=== PATIENT | female | born 1985 | race Hispanic/Latino ===

== ENCOUNTER 2019-07-14 13:13 | Outpatient (CLI) | payer OTHER ==
--- NOTE | 2019-07-14 13:52 | ULT ---
EXAM: OB ultrasound COMPARISON: None HISTORY: female. Evaluate size, dates, and anatomy. TECHNIQUE: Multiplanar grayscale and color Doppler images were obtained in a transabdominal ult rasound. FINDINGS: There is a single live intrauterine with heart rate of 130 bpm. A survey wa s performed which is unremarkable. The head, intracranial structures, heart, stomach, kidneys, umbilical cord, umbilical cord insertion, spine, face, and extremities were evaluated and were unrema rkable. Estimated weight is 336 g. Average age of the fetus based off today's examination is 20 weeks 3 days. BPD 4.69 cm -- 20 weeks 2 days HC 18.21 cm -- 20 weeks 5 days AC 15.09 cm -- 20 weeks 3 days FL 3.17 cm -- 19 weeks 6 days The placenta is posterior in location without focal abnormality. KYLEIGH is 13.58 cm which is normal. The cervix is normal in length. There is no evidence of placenta previa. IMPRESSION: Single live intrauterine with estimated age of 20 weeks 3 days.
== END 2019-07-14 13:14 | disposition home or self-care (01) ==
LOC: BICULT 13:13
DX: O09.92 Supervision of high risk pregnancy, unspecified, second trimester (principal); Z3A.20 20 weeks gestation of pregnancy
CPT/HCPCS: 76805

== ENCOUNTER 2019-11-23 19:15 | Inpatient (IN) | payer MEDICAID, OTHER, SELFPAY ==
[2019-11-24] MEDS ORDERED: Carboprost 250 MCG/ML AMP IM PRN (06:13)
[2019-11-24] MEDS ORDERED: Methylergonovine 0.2 MG/ML VIAL IM PRN (06:13)
[2019-11-24] MEDS ORDERED: Ibuprofen 800 MG TAB PO PRN (06:13)
[2019-11-24] MEDS ORDERED: Butorphanol Tartrate 1 MG/ML VIAL SLOW IVP PRN (06:13)
[2019-11-24] MEDS ORDERED: NS / Oxytocin 40 units/1000ml 1,000 ML IV PRN (06:13)
[2019-11-24] MEDS ORDERED: Misoprostol 200 MCG TAB PR PRN (06:13)
[2019-11-24] MEDS ORDERED: HYDROcodone/Acetaminophen 5/325 mg Tablet PO PRN ×3 (06:13→13:52)
[2019-11-24] MEDS ORDERED: Lidocaine 1% (PF) 30 ML VIAL SC PRN (06:13)
[2019-11-24] MEDS ORDERED: Diphenoxylate HCl/Atropine Tablet PO PRN (06:13)
[2019-11-24] MEDS ORDERED: Promethazine HCl 25 MG/ML VIAL IM PRN ×3 (06:13→13:52)
[2019-11-24] MEDS ORDERED: Ondansetron PF 4 MG/2 ML Vial IVP PRN ×3 (06:13→13:52)
[2019-11-24] MEDS ORDERED: hydrALAZINE 20 MG/ML VIAL SLOW IVP PRN ×2 (06:13→13:52)
[2019-11-24] MEDS ORDERED: NS w/ Oxytocin 10 units 500 ML IV SCH ×2 (06:15)
[2019-11-24 06:18] VITALS: BMI 35.7
[2019-11-24] MEDS: Lactated Ringer's 1,000 ML IV SCH ×2 (06:20→08:49)
[2019-11-24 06:36] LABS: Hemoglobin 13.4 g/dL (12.0-16.0); Mean Corpuscular HGB CONC 34.4 g/dL (32.0-36.0); Mean Corpuscular Volume 87.4 fL (78.0-98.0); Mean Platelet Volume 8.1 fL (7.4-10.4); Platelet Count 315 thou/uL (130-400); RBC Distribution Width 12.2 % (11.5-14.5); Red Blood Cell (RBC) Count 4.46 mill/uL (4.20-5.40); White Blood Cell (WBC) Count 11.9 thou/uL (4.8-10.8)
[2019-11-24 07:12] LABS: Syphilis Antibody Nonreactive (Nonreactive); Syphilis Antibody Index 0.04 S/CO (<1.00 Non-Reactive)
[2019-11-24 07:13] LABS: HBSAg Index 0.13 S/CO (0-0.99); Hep B Surf Ag Non-Reactive S/CO (NonReactive)
[2019-11-24] MEDS ORDERED: Fentanyl 4 mcg/Bup 0.1% Cadd 100 ML ONE (07:40)
[2019-11-24] MEDS ORDERED: Famotidine/PF 20 mg/2ml Vial ONE (10:01)
[2019-11-24] MEDS ORDERED: Bupivacaine 0.25% HCL 30 ML VIAL ONE (10:13)
[2019-11-24] MEDS ORDERED: Naloxone HCl 0.4 mg/ml Vial IVP PRN ×2 (11:41)
[2019-11-24] MEDS ORDERED: Acetaminophen 325 MG TAB PO PRN (11:41)
[2019-11-24] MEDS ORDERED: diphenhydrAMINE 50 MG/ML VIAL IVP PRN (11:41)
[2019-11-24] MEDS ORDERED: ePHEDrine/0.9% NaCl/PF SYRINGE 50 mg/10 ml SLOW IVP PRN (11:41)
[2019-11-24] MEDS ORDERED: Lactated Ringer's 500 ML IV PRN (11:41)
[2019-11-24] MEDS ORDERED: Fentanyl 4 mcg/Bupivacaine 0.1% Cassette 100 ML EPIDURAL SCH (11:45)
[2019-11-24] MEDS ORDERED: Communication Order-Pharmacy FS SCH (11:45)
[2019-11-24 13:12] LABS: Actual Bicarbonate (HCO3a) 27.3 mEq/L (22-28); Base Excess (BEa) -0.9 mEq/L (-2.0 to +3.0)
[2019-11-24 13:14] LABS: Actual Bicarbonate (HCO3v) 28 mEq/L (22-28); Base Excess -1.2 mEq/L (-2.0 to +3.0)
[2019-11-24 13:16] LABS: pH (Cord, venous) 7.24 (7.32-7.43)
[2019-11-24] MEDS ORDERED: Bisacodyl 10 MG SUPP PR PRN (13:52)
[2019-11-24] MEDS ORDERED: Adacel (T-DAP) 0.5 ML SYRINGE IM ONE (13:52)
[2019-11-24] MEDS ORDERED: Lanolin Ointment 7 GM TUBE TOP PRN (13:52)
[2019-11-24] MEDS ORDERED: Milk Of Magnesia 30 ML UDCUP PO PRN (13:52)
[2019-11-24] MEDS ORDERED: Preparation H Ointment 28 GM TUBE PR PRN (13:52)
[2019-11-24] MEDS ORDERED: NS / Oxytocin 40 units/1000ml 1,000 ML IV SCH (13:52)
[2019-11-24] MEDS ORDERED: diphenhydrAMINE 25 MG CAP PO PRN (13:52)
[2019-11-24] MEDS: Ibuprofen 800 MG TAB PO SCH ×2 (15:54→21:08)
[2019-11-24] MEDS: Docusate Calcium (SURFAK) 240 MG CAP PO SCH (21:08)
[2019-11-24] MEDS: Ferrous Sulfate 325 MG TAB PO SCH (22:11)
[2019-11-25] MEDS: Ibuprofen 800 MG TAB PO SCH ×2 (06:08→13:32)
[2019-11-25] MEDS: Ferrous Sulfate 325 MG TAB PO SCH (08:28)
[2019-11-25] MEDS: Docusate Calcium (SURFAK) 240 MG CAP PO SCH (08:28)
[2019-11-25] MEDS ORDERED: Prenatal Vitamin 1 TAB PO SCH (09:00)
[2019-11-25 12:28] VITALS: BP 98/58; TEMP 98.4
== END 2019-11-25 16:00 | disposition home or self-care (01) | DRG 807 ==
LOC: L&D 11-24 05:44 → 3SW 11-24 16:16
PROVIDERS: ADMIT Family Medicine; ATTEND Family Medicine
PROC: 10E0XZZ Delivery of Products of Conception, External Approach (ICD-10-PCS; principal; 2019-11-24)
PROC: 10H07YZ Insertion of Other Device into Products of Conception, Via Natural or Artificial Opening (ICD-10-PCS; 2019-11-24)
PROC: 10907ZC Drainage of Amniotic Fluid, Therapeutic from Products of Conception, Via Natural or Artificial Opening (ICD-10-PCS; 2019-11-24)
PROC: 3E033VJ Introduction of Other Hormone into Peripheral Vein, Percutaneous Approach (ICD-10-PCS; 2019-11-24)
DX: O76 Abnormality in fetal heart rate and rhythm complicating labor and delivery (principal); O69.81X0 Labor and delivery complicated by cord around neck, without compression, not applicable or unspecified; Z37.0 Single live birth; Z3A.39 39 weeks gestation of pregnancy
CPT/HCPCS: 51702; 82805; 85027; 86780; 86850; 86900; 86901; 87340; J2590; S0020; S0028